=== PATIENT | male | born 1995 ===

== ENCOUNTER 2024-01-22 17:10 | Emergency (ER) | payer OTHER, BC | END 2024-01-22 18:53 | disposition home or self-care (01) | LOC: LL.ED 17:10 | DX: S29.9XXA Unspecified injury of thorax, initial encounter (principal); X50.0XXA Overexertion from strenuous movement or load, initial encounter; Y99.0 Civilian activity done for income or pay | CPT/HCPCS: 72072; 72100; 99283 ==